=== PATIENT | male | born 1970 | race Caucasian/White ===

== ENCOUNTER 2023-01-11 21:39 | Emergency (ER) | payer BC, SELFPAY ==
--- NOTE | ~2023-01-11 | CT_ITS ---
EXAMINATION: CT abdomen pelvis w con DATE: 01/12/2023 01:44 INDICATION: Left upper quadrant abdominal pain, generalized abdominal pain, nausea and vomiting and d iarrhea. TECHNIQUE: Computed tomography (CT) of the abdomen and pelvis was performed with 100 CC Omnipaque 350 intravenous contrast. Automated exposure control and iterative reconstruction technique were employe d. Exam dose: 1728.29 mGy-cm total exam DLP. COMPARISON: None. FINDINGS: Minimal bilateral lower lobe discoid atelectasis. Heart size is within normal range. No per icardial or pleural effusion. Diffuse hepatic steatosis. No hepatic space-occupying mass lesion. The gallbladder appears unremarkab le. No bile duct or pancreatic duct dilatation. No pancreatic mass lesion or calcification. Normal sp lenic size. Normal morphology of the adrenal glands. Approximately 3 mm nonobstructing lower pole right renal calculus no other urinary tract calculus or hydroureteronephrosis. No renal space occupying mass lesion. Normal caliber of the abdominal aorta. No intraperitoneal or retroperitoneal or pelvic mass lesion or adenopathy or ascites. Fluid levels in the stomach and proximal and mid small bowel, with small bowel measuring up to 3.4 cm diameter in the lower mid abdomen. The distal small bowel is decompressed. Partial small bowel obstr uction is suggested. Adynamic ileus would be another consideration in the differential diagnosis. Normal appendix. No intraperitoneal free air. Prostate calcifications are noted. The urinary bladder is unremarkable. No suspicious osteolytic or osteoblastic lesions. IMPRESSION: Early or partial small bowel obstruction is suspected Reviewed, dictated and finalized at [facility] Reviewed, dictated and finalized at [facility].
[2023-01-11 21:44] VITALS: BP 150/86; PULSE 133; RESP 18; TEMP 36.1; O2SAT 97
[2023-01-11 22:35] LABS: Basophils Percent Auto 0.1 % (0.2-1.2); Eosinophils Percent Auto 0.3 % (0-4.4); Hematocrit 48.2 % (42.0-52.0); Hemoglobin 15.7 g/dL (14.0-18.0); Immature Granulocyte Absolute 0.04 K/mm3 (0.00-0.031); Immature Granulocyte Percent A 0.3 % (0-0.5); Lymphocytes Absolute Auto 1.47 K/mm3 (0.9-3.2); Lymphocytes Percent Auto 10.1 % (18.3-44.2); Mean Corpuscular HGB Conc 32.6 g/dl (32-36); Mean Corpuscular Hemoglobin 28.2 pg (26-34); Mean Corpuscular Volume 86.5 fl (80-100); Mean Platelet Volume 10.7 fl (7.4-10.4); Monocytes Absolute Auto 0.6 K/mm3 (0.1-0.6); Monocytes Percent Auto 4.3 % (2.6-8.5); Neutrophils Absolute Auto 12.4 K/mm3 (1.3-6.7); Neutrophils Percent Auto 84.9 % (45.5-73.1); Platelet Count Result 292 k/mm3 (150-375); Red Blood Count 5.57 M/mm3 (4.6-6.20); White Blood Count 14.6 K/mm3 (4.5-10.0)
[2023-01-11 22:53] LABS: Appearance Urine Clear (Clear); Bacteria Urine None Seen /hpf; Bilirubin Urine Negative (Negative); Blood Urine Negative (Negative); Color Urine Dark Yellow (Yellow); Glucose Urine UA Negative (Negative); Ketones Urine 2+ mg/dL (Negative); Leukocyte Esterase Ur Negative LEU/UL (Negative); Need Manual Microscopic Reviewed; Nitrate Urine Negative (Negative); Protein Urine 1+ mg/dL (Negative); RBC Urine 0-2 /hpf (0-2); Specific Grav Ur 1.027 (1.001-1.035); Squamous Epithelial Cell Urine Few /hpf (Few); pH Urine 5.5 (5.0-9.0)
[2023-01-11 22:56] LABS: Add Urine Microscopic? YES
[2023-01-11 22:57] LABS: Alanine Aminotransferase 37 U/L (6-50); Albumin Level 4.6 g/dL (3.5-5.1); Alkaline Phosphatase 98 U/L (38-126); Anion Gap 12 mmol/L (8-16); Aspartate Amino Transferase 32 U/L (17-59); Bilirubin,Total 0.9 mg/dL (0.2-1.3); Blood Urea Nitrogen 16 mg/dL (9-20); Calcium 9.1 mg/dL (8.4-10.2); Carbon Dioxide 24 mmol/L (22-30); Chloride 106 mmol/L (98-107); Estimated CRCL calculation 103 ml/min; Estimated Glomerular Filt Rate > 60; Glucose 172 mg/dL (65-110); Lipase 90 U/L (23-300); Potassium 4.3 mmol/L (3.4-5.0); Sodium 142 mmol/L (137-145)
[2023-01-12] MEDS: ONDANSETRON INJ 4 MG/2 ML VIAL IV PUSH (00:26)
[2023-01-12] MEDS: SODIUM CHLORIDE 0.9% IV 1,000 ML 999 ML IV CONT (00:26)
[2023-01-12 00:27] VITALS: BP 152/100; PULSE 98; RESP 16; O2SAT 99
--- NOTE | 2023-01-12 01:19 | ED.GENADULT ---
HPI - General Adult General Chief complaint: Nausea/Vomiting/Diarrhea Stated complaint: N/V/D Time Seen by Provider: 01/12/23 00:11 History of Present Illness HPI narrative: 52-year-old male presented to the emergency department for evaluation of nausea vomiting and diarrhea. Patient reports his symptoms started yesterday around noon. Patient did have telemedicine follow-up and was treated with some p.o. Zofran. Patient states this is helped with the nausea but he was still having complaints of abdominal pain. Patient did have an improvement of his symptoms upon arrival to the ED Related Data Allergies Allergy/AdvReac Type Severity Reaction Status Date / Time sulfamethoxazole Allergy Rash Verified 01/11/23 21:47 [From Bactrim] trimethoprim [From Bactrim] Allergy Rash Verified 01/11/23 21:47 Review of Systems Review of Systems: All systems reviewed & are unremarkable except as noted in HPI and below Exam Narrative: APPEARANCE: Well appearing, no pain, no distress, well-nourished. HEAD: normocephalic, atraumatic. EYES: PERRLA/EOMI, conjunctivae clear. NOSE: Normal no drainage NECK: Supple. No adenopathy, no masses. RESPIRATORY: Airway patent, respirations nonlabored. Clear to auscultation bilaterally, no rales, rhonchi, wheezing. CARDIOVASCULAR: Regular rate and rhythm without murmurs rubs or gallops. ABDOMINAL: Soft, nontender, nondistended, normal bowel sounds MUSCULOSKELETAL: Moves all extremities. Strength/ROM intact, No edema, No calf tenderness. NEURO: Alert. Cranial nerves II through XII intact. Grossly intact SKIN: Warm, dry. Normal Color Course Course Emergency Course: 52-year-old male presented the emergency department for evaluation of nausea vomiting diarrhea and abdominal pain. Patient reports his abdominal pain was improved after rehydration. Patient does have an elevated leukocytosis, patient's hemoglobin is stable at 15.7. No significant electrolyte abnormalities. UA shows no evidence of infection. CT scan did show concern for ileus. Patient has no tenderness to palpation on exam and patient is passing flatus and stool. No concern for bowel obstruction at this time. Patient does have Zofran that was ordered as outpatient. Patient was updated the results of his work-up and was encouraged of close follow-up with his primary care physician. Patient was also encouraged to follow a clear liquid diet and continue taking the Zofran for nausea control. All questions concerns were addressed. Patient was well-appearing at time of discharge. Vital Signs Vital signs: Vital Signs Temperature 96.9 F L 01/11/23 21:44 Pulse Rate 133 H 01/11/23 21:44 Respiratory Rate 18 01/11/23 21:44 Blood Pressure 150/86 H 01/11/23 21:44 Pulse Oximetry 97 01/11/23 21:44 Oxygen Delivery Room Air 01/11/23 21:44 Temperature 96.9 F L 01/11/23 21:44 Pulse Rate 98 01/12/23 02:46 Respiratory Rate 15 01/12/23 02:46 Blood Pressure 136/94 H 01/12/23 02:46 Pulse Oximetry 96 01/12/23 02:46 Oxygen Delivery Room Air 01/11/23 21:44 Medical Decision Making Differential Diagnosis Differential Diagnosis: Appendicitis, diverticulitis, colitis, enterocolitis Vital Signs Vital Signs: Vital Signs Temperature 96.9 F L 01/11/23 21:44 Pulse Rate 133 H 01/11/23 21:44 Respiratory Rate 18 01/11/23 21:44 Blood Pressure 150/86 H 01/11/23 21:44 Pulse Oximetry 97 01/11/23 21:44 Oxygen Delivery Room Air 01/11/23 21:44 Temperature 96.9 F L 01/11/23 21:44 Pulse Rate 98 01/12/23 02:46 Respiratory Rate 15 01/12/23 02:46 Blood Pressure 136/94 H 01/12/23 02:46 Pulse Oximetry 96 01/12/23 02:46 Oxygen Delivery Room Air 01/11/23 21:44 Lab Data Lab results reviewed: Yes I reviewed the patient's lab results. 01/11/23 22:29 01/11/23 22:29 Labs: Lab Results 01/11/23 Range/Units 22:29 WBC 14.6 H (4.5-10.0) K/mm3 RBC 5.57
[2023-01-12] MEDS: PANTOPRAZOLE SODIUM IV 40 MG VIAL IV PUSH (01:43)
[2023-01-12 01:45] VITALS: BP 163/94; PULSE 107; RESP 20; O2SAT 96
--- NOTE | 2023-01-12 01:45 | PC.NURSE ---
report called to [facility]. Advised ambulance has an ETA of 0500.
[2023-01-12 02:11] VITALS: BP 150/94; PULSE 93; RESP 15; O2SAT 95
[2023-01-12 02:46] VITALS: BP 136/94; PULSE 98; RESP 15; O2SAT 96
== END 2023-01-12 02:47 | disposition home or self-care (01) ==
PROVIDERS: Emergency Provider Emergency Medicine
DX: R11.2 Nausea with vomiting, unspecified (principal); R19.7 Diarrhea, unspecified
CPT/HCPCS: 36415; 74177; 80053; 81001; 83690; 85025; 87086; 96361; 96374; 96375; 99284; C9113; J2405; J7030; Q9967